=== PATIENT | female | born 1970 | race African-American/Black ===

== ENCOUNTER 2018-05-25 19:57 | Emergency (ER) | payer MEDICAID ==
[~2018-05-25] VITALS: Ht 167.6 cm; Wt 95.0 kg
[2018-05-25 20:02] VITALS: BP 115/67
== END 2018-05-25 21:16 | disposition left against medical advice (07) ==
LOC: ER 20:46
DX: Z53.21 Procedure and treatment not carried out due to patient leaving prior to being seen by health care provider (principal)